=== PATIENT | female | born 1980 | race Caucasian/White ===

== ENCOUNTER 2017-06-16 08:26 | Emergency (ER) | payer SELFPAY ==
[~2017-06-16] VITALS: Ht 152.4 cm; Wt 97.5 kg
[2017-06-16] MEDS ORDERED: FAMOTIDINE 20 MG TABLET PO ONE (08:45)
[2017-06-16] MEDS ORDERED: EPINEPHrine SYRINGE 1 MG/10 ML SYRINGE IM ONE (08:45)
[2017-06-16] MEDS ORDERED: IPRATRPIUM/ALBUTEROL 0.5/2.5MG 3 ML NEBU. NEB ONE (08:45)
[2017-06-16] MEDS ORDERED: predniSONE 20 MG TABLET PO ONE (08:45)
[2017-06-16] MEDS ORDERED: FAMOTIDINE 20 MG/2 ML VIAL IVP ONE (08:50)
[2017-06-16] MEDS ORDERED: IV NORMAL SALINE 1,000ML 1,000 ML IV ONE (08:50)
--- NOTE | 2017-06-16 08:51 | PHYS DOC ---
Past History Additional Past Medical Histor: heart condition stable dilated cardiomyopathy with Past Surgical History: Appendectomy, Cholecystectomy, Smoking: Cigarettes, Greater than 1 pack/day Alcohol Use: Occasionally Drug Use: None Adult General Chief Complaint Chief Complaint: RASH HPI HPI Patient is a pleasant 36-year-old obese female who presents with a three-day history of urticaria rash. She denies any introduction of new food, new perfumes , new soaps, new exposures but developed a red raised rash on her upper body legs or arms neck chest. The rash is been moving from various locations on her body and is been intensely itchy. She denies any headache, fevers, shortness of breath. She has had a slight cough but she does continue to smoke daily. She denies any production with this cough, denies abdominal pain chest pain or shortness of breath. Patient admits that she's been attempting use Benadryl with minimal improvement of her symptoms. Patient denies any new experiences other than going [place] 3 days ago for this rash began. Patient denies any palm or sole involvement or feet, denies any joint swelling history of STDs or other medical problems be contributing to her symptoms. Review of Systems Review of Systems Constitutional: Denies fever or chills [] Eyes: Denies change in visual acuity, redness, or eye pain [] HENT: Denies nasal congestion or sore throat [] Respiratory: Denies cough or shortness of breath [] Cardiovascular: No additional information not addressed in HPI [] GI: Denies abdominal pain, nausea, vomiting, bloody stools or diarrhea [] : Denies dysuria or hematuria [] Musculoskeletal: Denies back pain or joint pain [] Integument: Patient does have a rash on her upper and lower extremities as well as her abdomen chest and back Neurologic: Denies headache, focal weakness or sensory changes [] Endocrine: Denies polyuria or polydipsia [] Physical Exam Physical Exam Of the vital signs recorded on the chart patient noted to be tachycardic and not tachypnea Constitutional: Well developed, well nourished, no acute distress, non-toxic appearance. [] HENT: Normocephalic, atraumatic, bilateral external ears normal, oropharynx moist, no oral exudates, nose normal. [] Eyes: PERRLA, EOMI, conjunctiva normal, no discharge. [] Neck: Normal range of motion, no tenderness, supple, no stridor. [] Cardiovascular: Patient noted to be tachycardic with no murmurs gallops or rubs. Lungs & Thorax: Slight coarse rhonchi throughout the lungs. Abdomen: Bowel sounds normal, soft, no tenderness, no masses, no pulsatile masses. [] Skin: Warm, dry, patient with urticarial rash on her upper or lower limbs, abdominal wall, chest wall and back. There are no vesicles, no purpura, no petechiae, no joint involvement. Her palms and soles are clear for rash. There is no evidence of endocarditis in the way of Janeway's lesions or Osler's nodes. Back: No tenderness, Extremities: No tenderness, no cyanosis, no clubbing, ROM intact, no edema. [] Neurologic: Alert and oriented X 3, normal motor function, normal sensory function, no focal deficits noted. [] Psychologic: Affect normal, judgement normal, mood normal. [] EKG EKG [] Radiology/Procedures Radiology/Procedures [] Course & Med Decision Making Course & Med Decision Making Pertinent Labs and Imaging studies reviewed. (See chart for details) Patient arrival my concern was an urticarial reaction to an allergic response to a systemic allergen. I believe that her tachycardia was likely secondary to the Benadryl she was using at home to treat her symptoms and her anxiety upon arrival. I believe that her coarse rhonchi throughout her lungs was not associated with a anaphylactic reaction but more associated with a bronchitis associated with her smoking. Time is now 9:45 AM patient feels markedly improved after Solu-Medrol, epinephrine, Pepcid and fact she is asked if she could go home because she is feeling so much better. I will place her on a short course of prednisone, Pepcid orally, and azithromycin and an inhaler for her bronchitis with close follow-up with her PCP. [] Dragon Disclaimer Dragon Disclaimer This chart was dictated in whole or in part using Voice Recognition software in a busy, high-work load, and often noisy Emergency Department environment. It may contain unintended and wholly unrecognized errors or omissions. Departure Departure: Impression: Primary Impression: Allergic reaction Additional Impressions: Urticaria Bronchitis Disposition: 01 HOME, SELF-CARE Condition: STABLE Referrals: PCP,NO (PCP) Patient Instructions: Acute Bronchitis, Hives Additional Instructions: My discharge plan Follow up: In addition patient is asked to followup with their primary doctor, within a week for followup examination and to address patient's ongoing medical conditions. Because patient does not have a regular medical doctor, a local physician Resource Sheet will be provided to establish care primary care. Patient is advised that in the Emergency Department primary complaints are addressed and only in light of known signs and symptoms. Patient should return immediately to the emergency department if new signs and symptoms develop or patient's condition worsens in any way. At time of discharge patient was in stable condition and had verbalized understanding of the discharge instructions. Please stop smoking if you can acid livestock agent risk for bronchitis. Please return for any increasing shortness of breath despite treatment or if you have any question concerns. Scripts Famotidine (PEPCID) 20 Mg Tablet 1 TAB PO BID, #20 TAB 0 Refills Prov: ELAINA MENDEZ MD 06/16/17 Prednisone (PREDNISONE) 20 Mg Tablet 3 TAB PO DAILY for 5 Days, #15 TAB Prov: ELAINA MENDEZ MD 06/16/17 Diphenhydramine Hcl (BENADRYL) 25 Mg Capsule 50 MG PO QID for 7 Days, #56 CAP Prov: ELAINA MENDEZ MD 06/16/17 Azithromycin (AZITHROMYCIN TABLET) 250 Mg Tablet 250 MG PO DAILY for ANTI-BIOTIC for 5 Days, #5 TAB 0 Refills Please take 2 times the first day Please take one tablet day 2 through 5. Prov: ELAINA MENDEZ MD 06/16/17 Albuterol Sulfate (PROVENTIL HFA INHALER) 6.7 Gm Hfa.aer.ad 1-2 PUFF IH PRN Q4HRS Y for WHEEZING for 7 Days, INHALER 0 Refills Please dispense inhaler with a spacer Prov: ELAINA MENDEZ MD 06/16/17 Problem Qualifiers ELAINA MENDEZ MD Jun 16, 2017 08:51
[2017-06-16] MEDS ORDERED: EPINEPHrine 1 MG/ML AMPUL IM ONE (09:00)
[2017-06-16] MEDS ORDERED: methylPREDNISolone SOD SUCC PF 125 MG/2 ML VIAL. IV ONE (09:00)
[2017-06-16 09:50] VITALS: BP 132/65
[2017-06-16] MEDS ORDERED: ALBU6.7H IH (09:53)
[2017-06-16] MEDS ORDERED: AZIT250T6 PO (09:53)
[2017-06-16] MEDS ORDERED: FAMO-63 PO (09:53)
[2017-06-16] MEDS ORDERED: PRED20TA PO (09:53)
[2017-06-16] MEDS ORDERED: DIPH25CA58 PO (09:53)
== END 2017-06-16 10:00 | disposition home or self-care (01) ==
LOC: ER 08:26
DX: L50.9 Urticaria, unspecified (principal); T78.40XA Allergy, unspecified, initial encounter; J40 Bronchitis, not specified as acute or chronic; I42.0 Dilated cardiomyopathy; E66.9 Obesity, unspecified; F17.210 Nicotine dependence, cigarettes, uncomplicated; X58.XXXA Exposure to other specified factors, initial encounter
CPT/HCPCS: 94640; 96361; 96372; 96374; 96375; 99284; J0171; J2930; J7620; S0028; J7030